=== PATIENT | female | born 1975 | race American Indian/Alaskan Native ===

== ENCOUNTER 2016-09-21 08:41 | Emergency (ER) | payer OTHER ==
[2016-09-21 09:00] VITALS: BP 174/79
--- NOTE | 2016-09-21 10:13 | Emergency Department Report ---
ED Lower Extremity HPI - General Chief Complaint: Extremity Injury, Lower Stated Complaint: BILAT KNEE PAIN Time Seen by Provider: 09/21/16 09:58 Source: patient Mode of arrival: Ambulatory Limitations: No Limitations - History of Present Illness Initial Comments: Patient complaining of atraumatic chronic bilateral knee pain. Patient states she knows that the cause of her knee pain is her BMI. Patient states she is trying to work on her weight . MD Complaint: other (chronic bilateral knee pain) -: Gradual Injury: Knee: Right, Left Type of Injury: other Improves With: NSAID Worsens With: weight bearing, movement Treatments Prior to Arrival: NSAIDS - Related Data Previous Rx's Medication Instructions Recorded Last Taken Type Diclofenac Sodium 50 mg PO BID #20 tablet. 09/21/16 Unknown Rx Allergies Allergy/AdvReac Type Severity Reaction Status Date / Time No Known Allergies Allergy Unverified 09/21/16 08:57 ED Review of Systems ROS: Stated complaint: BILAT KNEE PAIN Other details as noted in HPI Constitutional: denies: chills, fever Eyes: denies: eye pain, eye discharge, vision change ENT: denies: ear pain, throat pain Respiratory: denies: cough, orthopnea, shortness of breath, SOB with exertion, SOB at rest, stridor, wheezing Cardiovascular: denies: chest pain, palpitations Gastrointestinal: denies: abdominal pain, nausea, vomiting, diarrhea Musculoskeletal: arthralgia Skin: denies: rash, lesions ED Past Medical Hx - Past Medical History Previous Medical History?: Yes Hx Hypertension: Yes Additional medical history: chronic knee pain - Surgical History Past Surgical History?: Yes Additional Surgical History: hysterectomy. x 2 - Social History Smoking Status: Never Smoker Substance Use Type: Alcohol - Medications Home Medications: Home Medications Medication Instructions Recorded Confirmed Last Taken Type Diclofenac Sodium 50 mg PO BID #20 tablet. 09/21/16 Unknown Rx ED Physical Exam - General Limitations: No Limitations General appearance: alert, in no apparent distress - Head Head exam: Present: atraumatic, normocephalic - Eye Eye exam: Present: normal appearance - ENT ENT exam: Present: mucous membranes moist - Neck Neck exam: Present: normal inspection - Respiratory Respiratory exam: Present: normal lung sounds bilaterally. Absent: respiratory distress - Cardiovascular Cardiovascular Exam: Present: regular rate, normal rhythm. Absent: systolic murmur, diastolic murmur, rubs, gallop - GI/Abdominal GI/Abdominal exam: Present: other (patient is morbidly obese) - Expanded Lower Extremity Exam Left Knee exam: Present: full ROM, tenderness. Absent: swelling, ecchymosis, deformity, crepidus Gait: Positive: antalgic ED Course Vital Signs 09/21/16 08:58 Temperature 98.1 F Pulse Rate 65 Respiratory 18 Rate Blood Pressure 174/79 O2 Sat by Pulse 100 Oximetry Critical care attestation.: If time is entered above; I have spent that time in minutes in the direct care of this critically ill patient, excluding procedure time. ED Disposition Clinical Impression: Osteoarthritis of knees, bilateral Disposition: DISCHARGED TO HOME OR SELFCARE Is pt being admited?: No Condition: Stable Instructions: Osteoarthritis (ED) Prescriptions: Diclofenac Sodium 50 mg PO BID #20 tablet. Referrals: PRIMARY CARE, [Primary Care Provider] - 3-5 Days
--- NOTE | 2016-09-21 11:19 | XRay Report ---
BILATERAL KNEE RADIOGRAPHS INDICATION: Pain. COMPARISON: None similar. FINDINGS: AP, lateral and oblique bilateral knee radiographs demonstrate overall intact articulation. Bilateral degenerative spurring involves the tibial spines, patella and medial more than lateral corners in this patient with severe right and [id number] left medial joint space narrowing. No definite large suprapatellar effusion, though left patellar enthesophyte superiorly incidentally noted. CONCLUSION: No acute fracture or dislocation with bilateral knee degenerative changes, right greater than left noted, as detailed above. Thank you for the opportunity to participate in this patient's care.
== END 2016-09-21 12:17 | disposition home or self-care (01) ==
LOC: ED 08:41
DX: M17.0 Bilateral primary osteoarthritis of knee (principal); G89.29 Other chronic pain; I10 Essential (primary) hypertension; Z90.710 Acquired absence of both cervix and uterus; Z98.890 Other specified postprocedural states; Z79.899 Other long term (current) drug therapy